=== PATIENT | female | born 1955 | race Asian ===

== ENCOUNTER 2020-02-10 10:43 | Observation (INO) | payer MEDICARE, BC ==
--- NOTE | 2020-02-10 11:20 | ED ---
General Adult HPI - General Chief complaint: Chest Pain Stated complaint: abn ekg, chest pain Time Seen by Provider: 02/10/20 11:05 Source: patient, RN notes reviewed, old records reviewed Mode of arrival: ambulatory Limitations: no limitations - History of Present Illness Initial comments: 64-year-old female presenting for evaluation of chest pain. Patient had an episode of chest pain on which was 3 days prior to arrival. She thought it was heartburn. She went to see her primary care physician today who had obtained an EKG and this was felt to be abnormal. The patient was sent to the emergency department for further evaluation and treatment. The patient denies current chest pain or dyspnea. No fever. No cough. No lower extremity pain or swelling. No nausea or vomiting. No known history of coronary artery disease. She is a nonsmoker. - Related Data Allergies Allergy/AdvReac Type Severity Reaction Status Date / Time Unable to Assess Allergy Verified 02/10/20 11:02 Review of Systems ROS Statement: Those systems with pertinent positive or pertinent negative responses have been documented in the HPI. ROS Other: All systems not noted in ROS Statement are negative. Past Medical History Past Medical History: Asthma, Hyperlipidemia History of Any Multi-Drug Resistant Organisms: None Reported Past Surgical History: No Surgical Hx Reported Smoking Status: Never smoker Past Alcohol Use History: None Reported Past Drug Use History: None Reported General Exam Limitations: no limitations General appearance: alert, in no apparent distress Head exam: Present: atraumatic, normocephalic Eye exam: Present: normal appearance, PERRL ENT exam: Present: normal exam Neck exam: Present: normal inspection. Absent: tenderness, meningismus Respiratory exam: Present: normal lung sounds bilaterally. Absent: respiratory distress, wheezes Cardiovascular Exam: Present: regular rate, normal rhythm GI/Abdominal exam: Present: soft. Absent: distended, tenderness Extremities exam: Present: normal inspection, normal capillary refill. Absent: pedal edema Neurological exam: Present: alert, oriented X3, CN II-XII intact. Absent: motor sensory deficit Psychiatric exam: Present: normal affect, normal mood Skin exam: Present: warm, dry, intact. Absent: cyanosis, diaphoretic Course Vital Signs 02/10/20 02/10/20 10:59 12:00 Temperature 98.4 F Pulse Rate 90 80 Respiratory 18 18 Rate Blood Pressure 152/100 173/93 O2 Sat by Pulse 98 96 Oximetry EKG Findings - EKG Comments: EKG Findings:: EKG: Normal sinus rhythm, left axis deviation, rate of 83, RI interval 114, QRS duration 106, QTC 4:30, no ST segment elevation. Medical Decision Making - Medical Decision Making 64 yo female with CP, patient sent from primary care office for evaluation. Chest pain-free at the time my evaluation. EKG is sinus rhythm without ST seg ment elevation. Chest x-ray negative for acute cardio pulmonary disease. She has normal CBC, normal CMP, negative initial troponin. She will be kept in observation for serial cardiac enzymes, telemetry, cardiology consultation. Case is discussed with Dr. Cantu who will admit. - Lab Data Result diagrams: 02/10/20 11:24 02/10/20 11:24 Lab Results 02/10/20 02/10/20 02/10/20 Range/Units 11:24 11:24 11:24 WBC 9.9 (3.8-10.6) k/uL RBC 6.33 H (3.80-5.40) m/uL Hgb 12.9 (11.4-16.0) gm/dL Hct 41.9 (34.0-46.0) % MCV 66.2 L (80.0-100.0) fL MCH 20.4 L (25.0-35.0) pg MCHC 30.9 L (31.0-37.0) g/dL RDW 14.4 (11.5-15.5) % Plt Count 303 (150-450) k/uL Neutrophils % 69 % Lymphocytes % 21 % Monocytes % 4 % Eosinophils % 4 % Basophils % 1 % Neutrophils # 6.8 (1.3-7.7) k/uL Lymphocytes # 2.1 (1.0-4.8) k/uL Monocytes # 0.4 (0-1.0) k/uL Eosinophils # 0.4 (0-0.7) k/uL Basophils # 0.1 (0-0.2) k/uL Hypochromasia Slight Microcytosis Marked PT 9.5 (9.0-12.0) sec INR 0.9 (<1.2) APTT 24.6 (22.0-30.0) sec Sodium 140 (137-145) mmol/L Potassium 3.7 (3.5-5.1) mmol/L Chloride 105 (98-107) mmol/L Carbon Dioxide 28 (22-30) mmol/L Anion Gap 7 mmol/L BUN 20 H (7-17) mg/dL Creatinine 0.63 (0.52-1.04) mg/dL Est GFR (CKD-EPI)AfAm >90 (>60 ml/min/1.73 sqM) Est GFR (CKD-EPI)NonAf >90 (>60 ml/min/1.73 sqM) Glucose 104 H (74-99) mg/dL Calcium 9.8 (8.4-10.2) mg/dL Magnesium 1.9 (1.6-2.3) mg/dL Total Bilirubin 0.6 (0.2-1.3) mg/dL AST 23 (14-36) U/L ALT 12 (4-34) U/L Alkaline Phosphatase 79 (38-126) U/L Troponin I (0.000-0.034) ng/mL Total Protein 7.5 (6.3-8.2) g/dL Albumin 4.5 (3.5-5.0) g/dL Lipase 79 (23-300) U/L 02/10/20 Range/Units 11:24 WBC (3.8-10.6) k/uL RBC (3.80-5.40) m/uL Hgb (11.4-16.0) gm/dL Hct (34.0-46.0) % MCV (80.0-100.0) fL MCH (25.0-35.0) pg MCHC (31.0-37.0) g/dL RDW (11.5-15.5) % Plt Count (150-450) k/uL Neutrophils % % Lymphocytes % % Monocytes % % Eosinophils % % Basophils % % Neutrophils # (1.3-7.7) k/uL Lymphocytes # (1.0-4.8) k/uL Monocytes # (0-1.0) k/uL Eosinophils # (0-0.7) k/uL Basophils # (0-0.2) k/uL Hypochromasia Microcytosis PT (9.0-12.0) sec INR (<1.2) APTT (22.0-30.0) sec Sodium (137-145) mmol/L Potassium (3.5-5.1) mmol/L Chloride (98-107) mmol/L Carbon Dioxide (22-30) mmol/L Anion Gap mmol/L BUN (7-17) mg/dL Creatinine (0.52-1.04) mg/dL Est GFR (CKD-EPI)AfAm (>60 ml/min/1.73 sqM) Est GFR (CKD-EPI)NonAf (>60 ml/min/1.73 sqM) Glucose (74-99) mg/dL Calcium (8.4-10.2) mg/dL Magnesium (1.6-2.3) mg/dL Total Bilirubin (0.2-1.3) mg/dL AST (14-36) U/L ALT (4-34) U/L Alkaline Phosphatase (38-126) U/L Troponin I <0.012 (0.000-0.034) ng/mL Total Protein (6.3-8.2) g/dL Albumin (3.5-5.0) g/dL Lipase (23-300) U/L Disposition Clinical Impression: Chest pain Disposition: HOME SELF-CARE Condition: Stable Is patient prescribed a controlled substance at d/c from ED?: No Referrals: Kyleigh Cantu MD [Primary Care Provider] - 1-2 days Decision to Admit Reason: Admit from EC Decision Date: 02/10/20 Decision Time: 12:47
[2020-02-10 11:36] LABS: Basophils # (A) 0.1 k/uL (0-0.2); Basophils % (A) 1 %; Eosinophils # (A) 0.4 k/uL (0-0.7); Eosinophils % (A) 4 %; HCT 41.9 % (34.0-46.0); HGB 12.9 gm/dL (11.4-16.0); Hypochromasia Slight; Lymphocytes # (A) 2.1 k/uL (1.0-4.8); Lymphocytes % (A) 21 %; MCH 20.4 pg (25.0-35.0); MCHC 30.9 g/dL (31.0-37.0); MCV 66.2 fL (80.0-100.0); Mean Platelet Volume 6.8; Microcytosis Marked; Monocytes # (A) 0.4 k/uL (0-1.0); Monocytes % (A) 4 %; Neutrophils # (A) 6.8 k/uL (1.3-7.7); Neutrophils % (A) 69 %; Platelet Count 303 k/uL (150-450); RBC 6.33 m/uL (3.80-5.40); RDW 14.4 % (11.5-15.5); WBC 9.9 k/uL (3.8-10.6)
--- NOTE | 2020-02-10 11:41 | XR ---
EXAMINATION TYPE: XR chest 2V DATE OF EXAM: 02/10/2020 COMPARISON: None INDICATION: Chest pain TECHNIQUE: Frontal and lateral views of the chest are obtained. FINDINGS: The heart size is normal. The pulmonary vasculature is normal. The lungs are clear. There is some increased summation density in the left upper lobe appears to be related to the first rib end. IMPRESSION: 1. No acute pulmonary process.
[2020-02-10 11:47] LABS: ALT 12 U/L (4-34); AST 23 U/L (14-36); African American GFR (CKD) >90 (>60 ml/min/1.73 sqM); Albumin 4.5 g/dL (3.5-5.0); Alkaline Phosphatase 79 U/L (38-126); Anion Gap 7 mmol/L; Blood Urea Nitrogen 20 mg/dL (7-17); Calcium 9.8 mg/dL (8.4-10.2); Carbon Dioxide 28 mmol/L (22-30); Chloride 105 mmol/L (98-107); Glucose 104 mg/dL (74-99); Magnesium 1.9 mg/dL (1.6-2.3); Non-African American GFR(CKD) >90 (>60 ml/min/1.73 sqM); Potassium 3.7 mmol/L (3.5-5.1); Sodium 140 mmol/L (137-145); Total Bilirubin 0.6 mg/dL (0.2-1.3); Total Protein 7.5 g/dL (6.3-8.2)
[2020-02-10 12:00] LABS: INR 0.9 (<1.2); Partial Thromboplastin Time 24.6 sec (22.0-30.0); Prothrombin Time 9.5 sec (9.0-12.0)
[2020-02-10] MEDS ORDERED: ASPIRIN 325 MG TAB PO STA (12:15)
[2020-02-10] MEDS ORDERED: MORPHINE SULFATE 4 MG/ML SYRINGE IV PRN (12:42)
[2020-02-10] MEDS ORDERED: ACETAMINOPHEN TAB 325 MG TAB PO PRN (12:42)
[2020-02-10] MEDS ORDERED: NALOXONE 0.4 MG/ML 1 ML VIAL IV PRN (12:42)
[2020-02-10] MEDS: SODIUM CHLORIDE 0.9% 1,000 ML IV SCH (12:58)
[2020-02-10] MEDS ORDERED: ARTIFICIAL TEARS-HYPROMELLOSE DROPS 15 ML BTL BOTH EYES PRN (13:59)
[2020-02-10] MEDS ORDERED: ATORVASTATIN 10 MG TAB PO SCH (14:00)
--- NOTE | 2020-02-10 14:04 | P.HPIM ---
History of Present Illness H&P Date: 02/10/20 Chief Complaint: Chest pain Mich Butler, 64-year-old female well known to my practice who presented to [facility] emergency room with a chief complaint of chest pain, patient describes a pressure sensation in the middle of her chest radiating to the back that started 4 days prior to presentation and has been ongoing on and off , patient was evaluated in the emergency room her first EKG and first set of cardiac enzymes were negative patient was admitted to 24-hour observation unit for further evaluation. On presentation to emergency room vital exam reveals a temperature of 98.4 pulse 90 respiration 18 blood pressure 152/100 pulse ox 98% on room air, EKG revealed normal sinus rhythm without acute ischemic changes BUN was 20 creatinine 0.63 troponin less than 0.012 On review of systems patient is alert and oriented 3 in no distress she is chest pain-free at this time there is no fever or chills no headache or dizziness no chest pain no shortness of breath no cough no nausea or vomiting no abdominal pain no diarrhea no blood in the stools no burning with urination no frequency or urgency and no hematuria. Her past medical history is significant for history of hyperlipidemia, history of asthma, history of ALLERGIC rhinitis, she denies any previous history of coronary artery disease or angina in the past. Past Medical History Past Medical History: Asthma, Hyperlipidemia History of Any Multi-Drug Resistant Organisms: None Reported Past Surgical History: No Surgical Hx Reported Smoking Status: Never smoker Past Alcohol Use History: None Reported Past Drug Use History: None Reported Medications and Allergies Home Medications Medication Instructions Recorded Confirmed Type Calcium Carbonate/Vitamin D3 1 tab PO DAILY 02/10/20 02/10/20 History [Calcium 600-Vit D3 400 Tablet] Fluticasone/Salmeterol [Advair 1 puff INHALATION RT-BID 02/10/20 02/10/20 History 250-50 Diskus] Montelukast [Singulair] 10 mg PO DAILY 02/10/20 02/10/20 History Multivitamins, Thera [Multivitamin 1 tab PO DAILY 02/10/20 02/10/20 History (formulary)] Propylene Glycol/Peg 400 [Systane 1 drop BOTH EYES DAILY PRN 02/10/20 02/10/20 History Ultra 0.4-0.3% Eye Drp] Simvastatin 10 mg PO DAILY 02/10/20 02/10/20 History Allergies Allergy/AdvReac Type Severity Reaction Status Date / Time No Known Allergies Allergy Unverified 02/10/20 13:47 Physical Exam Vitals: Vital Signs Temp Pulse Resp BP Pulse Ox 02/10/20 13:00 79 158/99 95 02/10/20 12:30 78 173/93 95 02/10/20 12:00 80 18 173/93 96 02/10/20 10:59 98.4 F 90 18 152/100 98 Intake and Output 02/09/20 02/10/20 02/10/20 22:59 06:59 14:59 Other: Weight 79.379 kg In general patient is alert and oriented 3 in no apparent distress HEENT head normocephalic and atraumatic Neck is supple no JVD no goiter no lymphadenopathy Chest exam reveals a few scattered crackles no wheezing Cardiac exam reveals regular heart sounds no murmurs Abdomen is soft nontender no organomegaly with normal bowel sounds Extremity exam reveals no edema no cyanosis or clubbing Neurological examination reveals no gross focal deficit Results CBC & Chem 7: 02/10/20 11:24 02/10/20 11:24 Labs: Abnormal Lab Results - Last 24 Hours (Table) 02/10/20 02/10/20 Range/Units 11:24 11:24 RBC 6.33 H (3.80-5.40) m/uL MCV 66.2 L (80.0-100.0) fL MCH 20.4 L (25.0-35.0) pg MCHC 30.9 L (31.0-37.0) g/dL BUN 20 H (7-17) mg/dL Glucose 104 H (74-99) mg/dL Assessment and Plan Plan: 1. Episodes of chest pain, at this time patient is admitted to 24-hour observation and serial EKGs and cardiac enzymes are ordered cardiology consultation requested 2. Underlying history of asthma chest x-ray is normal will resume Singulair 3. Underlying history of hyperlipidemia will resume simvastatin 4. Elevated blood pressure on presentation will monitor will add blood pressure medication if needed during this admission 5. For DVT prophylaxis we will use Lovenox for GI prophylaxis we will use omeprazole Will follow during this admission for medical management Please see orders
[2020-02-10] MEDS: ENOXAPARIN 40 MG/0.4 ML SYRINGE SQ SCH (16:25)
[2020-02-10] MEDS: SYMBICORT 80-4.5 MCG INHALER INHALATION SCH (19:11)
[2020-02-10] MEDS: ATORVASTATIN 10 MG TAB PO SCH (20:11)
[2020-02-11] MEDS: PANTOPRAZOLE 40 MG TABLET PO SCH (06:28)
[2020-02-11] MEDS: SYMBICORT 80-4.5 MCG INHALER INHALATION SCH ×2 (07:14→16:35)
[2020-02-11 10:11] LABS: Basophils % (A) 0 %; Eosinophils # (A) 0.3 k/uL (0-0.7); Eosinophils % (A) 3 %; HCT 44.1 % (34.0-46.0); HGB 12.9 gm/dL (11.4-16.0); Hypochromasia Marked; Lymphocytes # (A) 1.8 k/uL (1.0-4.8); Lymphocytes % (A) 17 %; MCHC 29.1 g/dL (31.0-37.0); MCV 68.6 fL (80.0-100.0); Mean Platelet Volume 7.1; Microcytosis Marked; Monocytes # (A) 0.5 k/uL (0-1.0); Monocytes % (A) 5 %; Neutrophils # (A) 7.8 k/uL (1.3-7.7); Neutrophils % (A) 74 %; Platelet Count 272 k/uL (150-450); RBC 6.44 m/uL (3.80-5.40); RDW 14.3 % (11.5-15.5); WBC 10.6 k/uL (3.8-10.6)
[2020-02-11 10:36] LABS: ALT 12 U/L (4-34); AST 23 U/L (14-36); African American GFR (CKD) >90 (>60 ml/min/1.73 sqM); Albumin 4.3 g/dL (3.5-5.0); Alkaline Phosphatase 68 U/L (38-126); Anion Gap 7 mmol/L; Blood Urea Nitrogen 15 mg/dL (7-17); Calcium 9.5 mg/dL (8.4-10.2); Carbon Dioxide 29 mmol/L (22-30); Chloride 104 mmol/L (98-107); Cholesterol 173 mg/dL (<200); Glucose 97 mg/dL (74-99); HDL Cholesterol 45 mg/dL (40-60); LDL Cholesterol,Calculated 93 mg/dL (0-99); Non-African American GFR(CKD) >90 (>60 ml/min/1.73 sqM); Potassium 3.6 mmol/L (3.5-5.1); Sodium 140 mmol/L (137-145); Total Bilirubin 0.9 mg/dL (0.2-1.3); Total Protein 7.2 g/dL (6.3-8.2); Triglycerides 177 mg/dL (<150)
--- NOTE | 2020-02-11 10:46 | P.CRDCN ---
History of Present Illness History of present illness: HISTORY OF PRESENTING ILLNESS This is a pleasant 64-year-old female past medical history significant for asthma and dyslipidemia. She denies prior history of coronary artery disease and does not follow with a youth liaison officer for any reason. We have been asked to see in consultation for chest pain. She states while cleaning her house she started feeling an odd sensation in the chest on the left side described as a "picking" sensation. The discomfort lasted all day , and into Monday until she took an over the counter antacid Monday afternoon. Shortly after taking the medication her discomfort subsided. She has had no further symptoms of chest discomfort Monday or Monday. The discomfort did not radiate to the back, arm, neck or jaw. She had no associated shortness of breath, dizziness, palpitations, nausea, vomiting or diaphoresis. She called her PCP Monday to inform what happen and was advised to come to ER for further evaluation. She has been chest pain-free since admission to the hospital. DIAGNOSTICS EKG reveals sinus mechanism with left axis deviation, no acute ischemic changes. Chest xray negative for any acute cardiopulmonary process. Laboratory reviewed, WBC 10.6, hemoglobin 12.9, platelets 272, sodium 140, potassium 3.6, creatinine 0.63, magnesium 1.9, cardiac enzymes negative 3, LDL 93 and HDL 45. Current cardiac medications include simvastatin 10 mg daily. REVIEW OF SYSTEMS At the time of my exam: CONSTITUTIONAL: Denies fever or chills. CARDIOVASCULAR: Denies chest pain, shortness of breath, orthopnea, PND or palpitations. RESPIRATORY: Denies cough. GASTROINTESTINAL: Denies abdominal pain, diarrhea, constipation, nausea or vomiting. MUSCULOSKELETAL: Denies myalgias. NEUROLOGIC: Denies numbness, tingling or weakness. ENDOCRINE: Denies fatigue, weight change, polydipsia or polyurina. GENITOURINARY: Denies burning, hematuria or urgency with micturation. HEMATOLOGIC: Denies history of anemia or bleeding. PHYSICAL EXAMINATION Blood pressure 146/88 heart rate 62 afebrile and maintaining oxygen saturation on room air. CONSTITUTIONAL: No apparent distress. HEENT: Head is normocephalic. Pupils are equal, round. Sclerae anicteric. Mucous membranes of the mouth are moist. No JVD. No carotid bruit. CHEST EXAMINATION: Lungs are clear to auscultation. No chest wall tenderness is noted on palpation or with deep breathing. HEART EXAMINATION: Regular rate and rhythm. S1, S2 heard. No murmurs, gallops or rub. ABDOMEN: Soft, nontender. Positive bowel sounds. EXTREMITIES: 2+ peripheral pulses, no lower extremity edema and no calf tenderness. NEUROLOGIC EXAMINATION: Patient is awake, alert and oriented x3. ASSESSMENT Chest pain, atypical. An acute coronary event has been ruled out. Symptoms suggestive of gastroesophageal reflux disease. Dyslipidemia PLAN An acute coronary event has been ruled out. Obtain 2-D echocardiogram and Doppler study to assess cardiac structure and function. Perform stress echocardiogram to assess for stress-induced cardiac ischemia. If stress test is normal she may be discharged from a cardiac perspective. Consider daily antacids or further GI evaluation. Thank you kindly for this consultation. Nurse Practitioner note has been reviewed, I agree with a documented findings and plan of care. Patient was seen and examined. Past Medical History Past Medical History: Asthma, GERD/Reflux, Hyperlipidemia Additional Past Medical History / Comment(s): Pt states she has a difference in leg lengths/occasional back pain, benign colon polyps, allergic rhinitis, History of Any Multi-Drug Resistant Organisms: None Reported Past Surgical History: Hysterectomy Additional Past Surgical History / Comment(s): L eye cataract removal, co lonoscopy/benign polyp Past Anesthesia/Blood Transfusion Reactions: No Reported Reaction Smoking Status: Never smoker - Past Family History Father Additional Family Medical History / Comment(s): Father at the age of 65yrs from alcoholism/smoking. Mother History Unknown: Yes Additional Family Medical History / Comment(s): Mother at the age of 77yrs. Pt does not know her medical history. Medications and Allergies Home Medications Medication Instructions Recorded Confirmed Type Calcium Carbonate/Vitamin D3 1 tab PO DAILY 02/10/20 02/10/20 History [Calcium 600-Vit D3 400 Tablet] Fluticasone/Salmeterol [Advair 1 puff INHALATION RT-BID 02/10/20 02/10/20 History 250-50 Diskus] Montelukast [Singulair] 10 mg PO DAILY 02/10/20 02/10/20 History Multivitamins, Thera [Multivitamin 1 tab PO DAILY 02/10/20 02/10/20 History (formulary)] Propylene Glycol/Peg 400 [Systane 1 drop BOTH EYES DAILY PRN 02/10/20 02/10/20 History Ultra 0.4-0.3% Eye Drp] Simvastatin 10 mg PO DAILY 02/10/20 02/10/20 History Allergies Allergy/AdvReac Type Severity Reaction Status Date / Time No Known Allergies Allergy Unverified 02/10/20 13:47 Physical Exam Vitals: Vital Signs Temp Pulse Pulse Resp BP BP Pulse Ox 02/11/20 03:00 98.1 F 64 18 146/94 98 02/10/20 20:51 98.0 F 84 18 131/90 95 02/10/20 16:12 98.3 F 80 16 146/88 96 02/10/20 15:25 98.2 F 81 16 185/112 98 02/10/20 15:00 16 02/10/20 14:59 70 18 153/93 97 02/10/20 13:00 79 158/99 95 02/10/20 12:30 78 173/93 95 02/10/20 12:00 80 18 173/93 96 02/10/20 10:59 98.4 F 90 18 152/100 98 Intake and Output 02/10/20 02/11/20 02/11/20 22:59 06:59 14:59 Intake Total 100 Balance 100 Intake: Oral 100 Other: Voiding Method Toilet Toilet # Voids 1 2 Weight 79.379 kg Results 02/11/20 09:16 02/11/20 09:16 Cardiac Enzymes 02/10/20 02/10/20 02/10/20 Range/Units 11:24 11:24 14:45 AST 23 (14-36) U/L Troponin I <0.012 <0.012 (0.000-0.034) ng/mL 02/10/20 Range/Units 17:22 AST (14-36) U/L Troponin I <0.012 (0.000-0.034) ng/mL Coagulation 02/10/20 Range/Units 11:24 PT 9.5 (9.0-12.0) sec APTT 24.6 (22.0-30.0) sec CBC 02/10/20 Range/Units 11:24 WBC 9.9 (3.8-10.6) k/uL RBC 6.33 H (3.80-5.40) m/uL Hgb 12.9 (11.4-16.0) gm/dL Hct 41.9 (34.0-46.0) % Plt Count 303 (150-450) k/uL Comprehensive Metabolic Panel 02/10/20 Range/Units 11:24 Sodium 140 (137-145) mmol/L Potassium 3.7 (3.5-5.1) mmol/L Chloride 105 (98-107) mmol/L Carbon Dioxide 28 (22-30) mmol/L BUN 20 H (7-17) mg/dL Creatinine 0.63 (0.52-1.04) mg/dL Glucose 104 H (74-99) mg/dL Calcium 9.8 (8.4-10.2) mg/dL AST 23 (14-36) U/L ALT 12 (4-34) U/L Alkaline Phosphatase 79 (38-126) U/L Total Protein 7.5 (6.3-8.2) g/dL Albumin 4.5 (3.5-5.0) g/dL Current Medications Generic Name Dose Route Start Last Admin Trade Name Freq PRN Reason Stop Dose Admin Acetaminophen 650 mg 02/10/20 12:42 Acetaminophen Tab 325 Mg Tab PO Q6HR PRN Mild Pain or Fever > 100.5 Artificial Tears 1 drops 02/10/20 13:59 Artificial Tears-Hypromellose Drops 15 Ml Btl BOTH EYES DAILY PRN DRY EYES Atorvastatin Calcium 10 mg 02/10/20 21:00 02/10/20 20:11 Atorvastatin 10 Mg Tab PO 10 mg HS SARAHY Administration Budesonide/Formoterol Fumarate 2 puff 02/10/20 20:00 02/11/20 07:14 Symbicort 80-4.5 Mcg Inhaler INHALATION 2 puff RT-BID SARAHY Administration Calcium Carbonate 1 each 02/11/20 09:00 Calcium Carb-Vit D 500mg-200un 1 Each Tab PO DAILY SARAHY Enoxaparin Sodium 40 mg 02/10/20 14:15 02/10/20 16:25 Enoxaparin 40 Mg/0.4 Ml Syringe SQ 40 mg DAILY SARAHY Administration Sodium Chloride 1,000 mls @ 20 mls/hr 02/10/20 12:45 02/10/20 12:58 Saline 0.9% IV 20 mls/hr .Q24H SARAHY Administration Montelukast Sodium 10 mg 02/11/20 09:00 Montelukast 10 Mg Tab PO DAILY [facility] Morphine Sulfate 4 mg 02/10/20 12:42 Morphine Sulfate 4 Mg/Ml Syringe IV Q4HR PRN Severe Pain Multivitamins 1 each 02/11/20 09:00 Multivitamins, Thera 1 Each Tab PO DAILY [facility] Naloxone HCl 0.2 mg 02/10/20 12:42 Naloxone 0.4 Mg/Ml 1 Ml Vial IV Q2M PRN Opioid Reversal Pantoprazole Sodium 40 mg 02/11/20 07:30 02/11/20 06:28 Pantoprazole 40 Mg Tablet PO 40 mg [id number] [facility] Administration Intake and Output 02/10/20 02/11/20 02/11/20 22:59 06:59 14:59 Intake Total 100 Balance 100 Intake: Oral 100 Other: Voiding Method Toilet Toilet # Voids 1 2 Weight 79.379 kg 02/10/20 11:24 02/10/20 11:24
[2020-02-11] MEDS: CALCIUM CARB-VIT D 500MG-200UN 1 EACH TAB PO SCH (11:16)
[2020-02-11] MEDS: ENOXAPARIN 40 MG/0.4 ML SYRINGE SQ SCH (11:16)
[2020-02-11] MEDS: MONTELUKAST 10 MG TAB PO SCH (11:16)
[2020-02-11] MEDS: MULTIVITAMINS, THERA 1 EACH TAB PO SCH (11:16)
[2020-02-11] MEDS ORDERED: NITROGLYCERIN SL TABS 0.4 MG TAB SUBLINGUAL PRN (12:37)
[2020-02-11] MEDS ORDERED: ALPRAZolam 0.25 MG TAB PO PRN (12:37)
[2020-02-11] MEDS ORDERED: ALPRAZolam 0.5 MG TAB PO PRN (12:37)
--- NOTE | 2020-02-11 12:37 | P.PN ---
Progress Note - Text Abnormal stress test results discussed with the patient. Recommend proceeding with cardiac catheterization for definitive diagnosis. I have discussed the risks, benefits and alternative therapies for the above-mentioned procedure and for both sedation/analgesia as well as necessary blood product administration, if indicated, as they pertain to this patient. The patient has indicated understanding and acceptance of the risks and procedures discussed. Questions have been answered appropriately and she is agreeable to move forward with the above stated procedure. She will be NPO after midnight tonight.
--- NOTE | 2020-02-11 14:17 | ECHOS ---
STRESS ECHOCARDIOGRAM LUMASON: Vial INDICATIONS: Chest pain. MEDICATIONS: BASELINE HEART RATE: 75 BASELINE BLOOD PRESSURE: 169/73 MAXIMUM HEART RATE: 122 MAXIMUM BLOOD PRESSURE: 170/104 85% MPHR: 131 100% MPHR: 154 METS: 3.8 MAXIMUM STAGE REACHED: 1 TOTAL EXERCISE TIME: 2:47 min CLINICAL INFORMATION: Baseline EKG shows sinus rhythm with left axis deviation and nonspecific ST-T wave changes. Patient exercised on Fahad protocol for a total of 2.5 minutes achieving 3 METS, 92% of predicted maximal heart rate and complained of fatigue and tiredness. Baseline echo shows normal left ventricular size, wall motion and systolic function. Postexercise, there is hypokinesis involving the anteroseptum suggestive of stress- induced ischemia. CONCLUSION: 1. Extremely poor exercise tolerance. 2. Nondiagnostic EKG changes with exercise. 3. Abnormal stress echo showing exercise-induced wall motion abnormality involving the anteroseptum. MMODL / IJN: [id number] /
--- NOTE | 2020-02-11 17:20 | ECHOF ---
Referral Reason: MEASUREMENTS -------- HEIGHT: 152.4 cm WEIGHT: 79.4 kg BP: RVIDd: 3.2 cm (< 3.3) IVSd: 1.2 cm (0.6 - 1.1) LVIDd: 4.6 cm (3.9 - 5.3) LVPWd: 1.1 cm (0.6 - 1.1) IVSs: 1.7 cm LVIDs: 3.1 cm LVPWs: 1.7 cm LA Diam: 3.5 cm (2.7 - 3.8) LAESV Index (A-L): 17.68 ml/m Ao Diam: 3.3 cm (2.0 - 3.7) AV Cusp: 2.0 cm (1.5 - 2.6) MV EXCURSION: 7.636 mm (> 18.000) MV EF SLOPE: 19 mm/s (70 - 150) EPSS: 0.7 cm MV E Dexter: 0.47 m/s MV DecT: 457 ms MV A Dexter: 0.92 m/s MV E/A Ratio: 0.51 FINDINGS -------- Sinus rhythm. This was a technically adequate study. The left ventricular size is normal. There is borderline concentric left ventricular hypertrophy. Overall left ventricular systolic function is normal with, an EF between 60 - 65 %. The right ventricle is normal in size. Normal LA size by volume 22+/-6 ml/m2. The right atrium is normal in size. Interatrial and interventricular septum intact. The aortic valve is trileaflet and appears structurally normal. The mitral valve is normal. The tricuspid valve appears structurally normal. Trace/mild (physiologic) pulmonic regurgitation. The aortic root size is normal. Normal inferior vena cava with normal inspiratory collapse consistent with estimated right atrial pre ssure of 5 mmHg. There is no pericardial effusion. CONCLUSIONS -------- 1. The left ventricular size is normal. 2. There is borderline concentric left ventricular hypertrophy. 3. Overall left ventricular systolic function is normal with, an EF between 60 - 65 %. 4. Trace/mild (physiologic) pulmonic regurgitation. 5. There is no pericardial effusion. DISPLAYER MERCHANDISE: Tiffanie Bocanegra RDCS
--- NOTE | 2020-02-11 17:49 | P.PN ---
Subjective Progress Note Date: 02/11/20 Mich Butler, 64-year-old female well known to my practice who presented to [facility] emergency room with a chief complaint of chest pain, patient describes a pressure sensation in the middle of her chest radiating to the back that started 4 days prior to presentation and has been ongoing on and off , patient was evaluated in the emergency room her first EKG and first set of cardiac enzymes were negative patient was admitted to 24-hour observation unit for further evaluation. On presentation to emergency room vital exam reveals a temperature of 98.4 pulse 90 respiration 18 blood pressure 152/100 pulse ox 98% on room air, EKG revealed normal sinus rhythm without acute ischemic changes BUN was 20 creatinine 0.63 troponin less than 0.012 On review of systems patient is alert and oriented 3 in no distress she is chest pain-free at this time there is no fever or chills no headache or dizziness no chest pain no shortness of breath no cough no nausea or vomiting no abdominal pain no diarrhea no blood in the stools no burning with urination no frequency or urgency and no hematuria. Her past medical history is significant for history of hyperlipidemia, history of asthma, history of ALLERGIC rhinitis, she denies any previous history of coronary artery disease or angina in the past. On 02/11/2020 patient was seen and examined on the medical floor she is alert and oriented 3 in no apparent distress patient underwent a stress test this morning which was abnormal, she was seen by cardiology and is scheduled for cardiac catheterization in a.m. tomorrow, at this time patient is doing well there is no fever or chills no headache or dizziness no chest pain no shortness of breath no cough no nausea or vomiting no abdominal pain no diarrhea no blood in the stools no burning with urination no frequency or urgency and no hematuria Objective - Vital Signs Vital signs: Vital Signs Temp 98 F 02/11/20 07:55 Pulse 62 02/11/20 07:55 Resp 16 02/11/20 09:00 BP 146/88 02/11/20 07:55 Pulse Ox 99 02/11/20 07:55 Intake & Output 02/10/20 02/11/20 02/11/20 18:59 06:59 18:59 Intake Total 100 Balance 100 Weight 79.379 kg Intake: Oral 100 Other: Voiding Method Toilet Toilet Toilet # Voids 2 2 - Exam In general patient is alert and oriented 3 in no apparent distress HEENT head normocephalic and atraumatic Neck is supple no JVD no goiter no lymphadenopathy Chest exam reveals a few scattered crackles no wheezing Cardiac exam reveals regular heart sounds no murmurs Abdomen is soft nontender no organomegaly with normal bowel sounds Extremity exam reveals no edema no cyanosis or clubbing Neurological examination reveals no gross focal deficit - Labs CBC & Chem 7: 02/11/20 09:16 02/11/20 09:16 Labs: Abnormal Lab Results - Last 24 Hours (Table) 02/11/20 02/11/20 Range/Units 09:16 09:16 RBC 6.44 H (3.80-5.40) m/uL MCV 68.6 L (80.0-100.0) fL MCH 20.0 L (25.0-35.0) pg MCHC 29.1 L (31.0-37.0) g/dL Neutrophils # 7.8 H (1.3-7.7) k/uL Triglycerides 177 H (<150) mg/dL Assessment and Plan Plan: 1. Episodes of chest pain, at this time patient is admitted to 24-hour observation and serial EKGs and cardiac enzymes are ordered cardiology consultation requested 2. Underlying history of asthma chest x-ray is normal will resume Singulair 3. Underlying history of hyperlipidemia will resume simvastatin 4. Elevated blood pressure on presentation will monitor will add blood pressure medication if needed during this admission 5. For DVT prophylaxis we will use Lovenox for GI prophylaxis we will use omeprazole Will follow during this admission for medical management Patient underwent a stress test this morning which was abnormal, she is schedul ed for cardiac catheterization in a.m. tomorrow Please see orders
[2020-02-11] MEDS: ATORVASTATIN 10 MG TAB PO SCH (20:22)
[2020-02-11] MEDS: METOPROLOL TARTRATE 25 MG TAB PO SCH (20:23)
[2020-02-11] MEDS: SODIUM CHLORIDE 0.9% 1,000 ML IV SCH (23:20)
[2020-02-12] MEDS ORDERED: SODIUM CHLORIDE 0.9% 1,000 ML in EMPTY BAG 1 BAG IV ONE (05:00)
[2020-02-12] MEDS ORDERED: ASPIRIN 325 MG TAB PO ONE (06:00)
[2020-02-12] MEDS: SYMBICORT 80-4.5 MCG INHALER INHALATION SCH (07:08)
[2020-02-12] MEDS ORDERED: IV FLUID CONTINUATION 900 ML IV ONE (07:15)
[2020-02-12] MEDS ORDERED: fentaNYL (PF) 50 MCG/ML 2 ML AMP ONE (07:17)
[2020-02-12] MEDS ORDERED: LIDOCAINE 1% INJ 10MG/ML (20 ML MDV) ONE (07:17)
[2020-02-12] MEDS ORDERED: MIDAZOLAM 2 MG/2 ML VIAL IV ONE (07:36)
[2020-02-12] MEDS ORDERED: fentaNYL (PF) 50 MCG/ML 2 ML AMP IV ONE (07:36)
[2020-02-12] MEDS ORDERED: LIDOCAINE 1% INJ 10MG/ML (20 ML MDV) SQ ONE (07:38)
[2020-02-12] MEDS ORDERED: IOPAMIDOL-370 125ML BTL INJ ONE (07:49)
[2020-02-12] MEDS: METOPROLOL TARTRATE 25 MG TAB PO SCH (09:31)
[2020-02-12] MEDS: CALCIUM CARB-VIT D 500MG-200UN 1 EACH TAB PO SCH (09:31)
[2020-02-12] MEDS: MONTELUKAST 10 MG TAB PO SCH (09:31)
[2020-02-12] MEDS: MULTIVITAMINS, THERA 1 EACH TAB PO SCH (09:31)
[2020-02-12] MEDS: ENOXAPARIN 40 MG/0.4 ML SYRINGE SQ SCH (09:32)
[2020-02-12] MEDS: PANTOPRAZOLE 40 MG TABLET PO SCH (09:32)
[2020-02-12] MEDS ORDERED: RX INFO: IV CONTRAST WAS GIVEN 1 EACH MISC MISCELLANE PRN (10:48)
--- NOTE | 2020-02-12 15:12 | CC ---
CARDIAC CATHETERIZATION REPORT INDICATION: Chest pain with abnormal stress test. PROCEDURE NOTE: After obtaining informed consent, left heart catheterization and coronary angiogram were performed via the right femoral artery using standard Narinder catheters. Patient tolerated the procedure well without any obvious immediate complications. A femoral angiogram was performed and Angio-Seal was deployed for hemostasis. Patient received moderate conscious sedation. Total sedation time was 17 minutes. FINDINGS: HEMODYNAMICS: Left ventricular end-diastolic pressure 10 mm. There is no significant gradient across the aortic valve. LEFT VENTRICULOGRAM: Left ventriculogram was not performed. ANGIOGRAPHIC DATA: LEFT MAIN CORONARY ARTERY: Left main coronary artery is a short vessel, free of stenosis. It divides into left anterior descending coronary artery and circumflex coronary artery. LAD and its branches, circumflex coronary artery and its branches are free of significant stenosis. RIGHT CORONARY ARTERY: This is a nondominant vessel and is free of significant disease. CONCLUSIONS: 1. Normal coronary arteries. 2. Left-dominant circulation. PLAN: Patient's management is going to be in the form of risk factor modification. MMODL / IJN: [id number] /
[2020-02-12 16:25] VITALS: BP 120/82; PULSE 74; RESP 16; TEMP 98.1
--- NOTE | 2020-02-12 17:17 | P.DS ---
Providers Date of admission: 02/10/20 13:18 Expected date of discharge: 02/12/20 Attending physician: Kyleigh Cantu Consults: 02/10/20 12:42 Consult Physician Routine Consulting Provider: Werner Rossi Consult Reason/Comments: CP Do you want consulting provider notified?: Yes Primary care physician: Kyleigh Alondra [facility] Course: Diagnosis on discharge: 1. Episodes of chest pain, at this time patient is admitted to 24-hour observation and serial EKGs and cardiac enzymes are ordered cardiology consultation requested, patient was evaluated by cardiology she underwent a stress echo which was abnormal she underwent cardiac catheterization on 02/12/2020 which was within normal limits she was cleared for discharge. 2. Underlying history of asthma chest x-ray is normal will resume Singulair 3. Underlying history of hyperlipidemia will resume simvastatin 4. Elevated blood pressure on presentation will monitor will add blood pressure medication if needed during this admission 5. For DVT prophylaxis we will use Lovenox for GI prophylaxis we will use omeprazole Hospital course: Mich Butler, 64-year-old female well known to my practice who presented to [facility] emergency room with a chief complaint of chest pain, patient describes a pressure sensation in the middle of her chest radiating to the back that started 4 days prior to presentation and has been ongoing on and off , patient was evaluated in the emergency room her first EKG and first set of cardiac enzymes were negative patient was admitted to 24-hour observation unit for further evaluation. On presentation to emergency room vital exam reveals a temperature of 98.4 pulse 90 respiration 18 blood pressure 152/100 pulse ox 98% on room air, EKG revealed normal sinus rhythm without acute ischemic changes BUN was 20 creatinine 0.63 troponin less than 0.012 On review of systems patient is alert and oriented 3 in no distress she is chest pain-free at this time there is no fever or chills no headache or dizziness no chest pain no shortness of breath no cough no nausea or vomiting no abdominal pain no diarrhea no blood in the stools no burning with urination no frequency or urgency and no hematuria. Her past medical history is significant for history of hyperlipidemia, history of asthma, history of ALLERGIC rhinitis, she denies any previous history of coronary artery disease or angina in the past. On 02/11/2020 patient was seen and examined on the medical floor she is alert and oriented 3 in no apparent distress patient underwent a stress test this morning which was abnormal, she was seen by cardiology and is scheduled for cardiac catheterization in a.m. tomorrow, at this time patient is doing well t here is no fever or chills no headache or dizziness no chest pain no shortness of breath no cough no nausea or vomiting no abdominal pain no diarrhea no blood in the stools no burning with urination no frequency or urgency and no hematuria On 02/12/2020 patient was seen and examined on the medical floor she is alert and oriented 3 in no apparent distress she underwent cardiac catheterization to day which revealed normal coronary arteries and normal left ventricular systolic function patient was cleared by cardiology for discharge metoprolol 25 mg by mouth twice a day was added to her medication regimen, patient was stable she did not have any recurrence of chest pain she was discharged home on 02/12/2020 she will be followed in our office in 2-3 days Patient Condition at Discharge: Stable Plan - Discharge Summary Discharge Rx Participant: No New Discharge Prescriptions: New Metoprolol Tartrate [Lopressor] 25 mg PO BID tab Continue Propylene Glycol/Peg 400 [Systane Ultra 0.4-0.3% Eye Drp] 1 drop BOTH EYES DAILY PRN PRN Reason: DRY EYES Multivitamins, Thera [Multivitamin (formulary)] 1 tab PO DAILY Fluticasone/Salmeterol [Advair 250-50 Diskus] 1 puff INHALATION RT-BID Simvastatin 10 mg PO DAILY Montelukast [Singulair] 10 mg PO DAILY Calcium Carbonate/Vitamin D3 [Calcium 600-Vit D3 400 Tablet] 1 tab PO DAILY Discharge Medication List Calcium Carbonate/Vitamin D3 [Calcium 600-Vit D3 400 Tablet] 1 tab PO DAILY 02/10/20 [History] Fluticasone/Salmeterol [Advair 250-50 Diskus] 1 puff INHALATION RT-BID 02/10/20 [History] Montelukast [Singulair] 10 mg PO DAILY 02/10/20 [History] Multivitamins, Thera [Multivitamin (formulary)] 1 tab PO DAILY 02/10/20 [History] Propylene Glycol/Peg 400 [Systane Ultra 0.4-0.3% Eye Drp] 1 drop BOTH EYES DAILY PRN 02/10/20 [History] Simvastatin 10 mg PO DAILY 02/10/20 [History] Metoprolol Tartrate [Lopressor] 25 mg PO BID tab 02/12/20 [Rx] Follow up Appointment(s)/Referral(s): Kyleigh Cantu MD [Primary Care Provider] - 02/14/20 11:30 am Skyler Hendricks MD [STAFF PHYSICIAN] - 1 Week ([facility] will call patient to schedule appointment.) Patient Instructions/Handouts: Left Heart Catheterization (DC), Heart Healthy Diet (DC)
== END 2020-02-12 18:14 ==
LOC: EC 10:43 → 3NCARDOBS 13:18
PROVIDERS: ADMIT Internal Medicine; ATTEND Internal Medicine
DX: R07.89 Other chest pain (principal); I20.0 Unstable angina; R94.39 Abnormal result of other cardiovascular function study; R94.31 Abnormal electrocardiogram [ECG] [EKG]; R03.0 Elevated blood-pressure reading, without diagnosis of hypertension; J45.909 Unspecified asthma, uncomplicated; E78.5 Hyperlipidemia, unspecified; M21.70 Unequal limb length (acquired), unspecified site; Z79.51 Long term (current) use of inhaled steroids; Z79.899 Other long term (current) drug therapy; Z86.010 Personal history of colon polyps; Z90.710 Acquired absence of both cervix and uterus; Z98.42 Cataract extraction status, left eye; Z81.1 Family history of alcohol abuse and dependence; Z81.2 Family history of tobacco abuse and dependence
CPT/HCPCS: 93005 ×3; 96372; 96374; 99285; 36415; 94640 ×3; 93306; 93351; 93458; 80061; 80053 ×2; 83690; 83735; 84484; 85025 ×2; 85610; 85730; 71046; G0378 ×3; C1769 ×2; C1760; C1894; J2250; J2001; J1650 ×3; J3010; Q9967